=== PATIENT | female | born 1940 | race Caucasian/White ===

== ENCOUNTER → 2023-05-23 13:25 | Outpatient (REF) | payer MEDICARE, OTHER, SELFPAY ==
--- NOTE | 2023-05-23 13:50 | CA_ITS ---
Transthoracic Echocardiogram Patient (Last, First, Middle): Dolly Sloan M Gender: Female Date of : 1940 Age: 82 Procedure Date: 05/23/2023 Procedure Type: Transthoracic Echocardiogram Location: OP Height: 157.48 cm Weight: 97.52 kg BSA: 1.97 m2 Heart Rate: 74 bpm BP: 135 / 70 mmHg Domestic Housekeeper: TREVIN Referring MD: Yasemin Ruiz MD Symptoms: [id number] Study Quality: Fair ECG Rhythm: Atrial Fibrillation Conclusions: - Normal left ventricular size and systolic function. There is moderately increased left ventricular wall thickness. The visually estimated ejection fraction is between 60-65%. - Normal right ventricular cavity size. There is low normal right ventricular systolic function. - The left atrium is severely dilated. The right atrium is normal in size. - There is mild aortic valve stenosis. - There is mild dilatation of the ascending aorta measuring 3.70 cm. Findings Left Ventricle Normal left ventricular size and systolic function. There is moderately increased left ventricular wall thickness. The visually estimated ejection fraction is between 60-65%. There is no evidence of regional wall motion abnormalities. Diastolic function is indeterminate on the basis of available data. Right Ventricle Normal right ventricular cavity size. There is low normal right ventricular systolic function. Atria The left atrium is severely dilated. The right atrium is normal in size. Aortic Valve There is moderate calcification of the aortic valve. There is mild aortic valve stenosis. The peak aortic velocity is 1.61 m/s. The mean gradient is 6 mmHg. There is no aortic valve regurgitation. Mitral Valve The mitral valve appears normal. There is severe mitral annular calcification. There is trace mitral valve regurgitation. There is no mitral valve stenosis. Pulmonic Valve The pulmonic valve is likely normal. There is trace pulmonic valve regurgitation. Tricuspid Valve Normal tricuspid valve structure. Normal right atrial pressure. There is no evidence of pulmonary hypertension. Great Vessels There is mild dilatation of the ascending aorta measuring 3.70 cm. The visualized portions of the pulmonary artery and branches are normal. Venous The inferior vena cava is normal in size and collapses greater than 50% with inspiration. Pericardium/Pleural There is no evidence of pericardial effusion. Prior Study Comparison No prior study available for comparison. Measurements 2D Linear Measurements IVSd: 1.40 0.6-0.9/0.6-1.0 cm LVIDd: 4.50 3.9-5.3/4.2-5.9 cm LVIDd Index: 2.28 2.4-3.2/2.2-3.1 cm/m2 LVIDs: 2.50 2.0-3.6 cm LVPWd: 1.20 0.7-1.1 cm LA Diam: 5.40 2.7-3.8/3.0-4.0 cm LAIDs Index: 2.74 1.5-2.3 cm/m2 LV Mass: 277.46 67-162/88-224 g LV Mass Index: 140.84 43-95/49-115 g/m2 LVOT Diam: 2.00 3.0+(-)1.3 cm 2D Systolic Function EF 4C: 66.20 >55% EF 2C: 49.90 >55% EF BiP: 57.30 >55% Mitral Valve MV VTI: 0.39 MV Pk Dante: 1.67 MV Mn Dante: 0.90 MV Pk Grad: 11.00 MV Mn Grad: 4.00 MV Pk E: 1.57 MV Decel Time: 260.00 E'Lateral: 7.54 E'Medial: 4.87 E/E' Med: 32.20 E/E' Lat: 20.80 PHT: 76.00 MVA PHT: 2.89 MVA Continuity: 1.57 Decel Hitchcock: 6.08 Aortic Valve AoV Pk Dante: 1.61 AoV Mn Dante: 1.19 AoV VTI: 0.37 AoV Pk Grad: 10.00 Aov Mn Grad: 6.00 BERLIN Cont.VTI: 1.66 LVOT LVOT Pk Dante: 0.89 LVOT Mn Dante: 0.66 LVOT VTI: 0.19 LVOT Pk Grad: 3.00 LVOT Mn Grad: 2.00 LVOT Diam: 2.00 LVOT Area: 3.14 Diastolic Function MV Pk E: 1.57 E'Medial: 4.87 E/E' Med: 32.20 E' Laterial: 7.54 E/E' Lat: 20.80 Right Ventricle TAPSE (mm): 17.10 TVS' Dante: 9.65 Tricuspid Valve TR Pk Dante: 2.13 TR Pk Grad: 18.00 RA Press: 8.00 RVSP: 26.00 Great Vessels Aorta Sinus of Valsalva: 3.20 2.0-3.5 cm Ao Asc: 3.70 2.1-3.4 cm Pulmonary Valve PV Pk Dante: 0.94 Peak PV Grad: 4.00 Updated in Other Vendor System with Status of Final Gianni Marino MD electronically signed on 05/25/2023 3:22:59 PM with status of Final
== END ==
LOC: HO.CARD 13:25
PROVIDERS: PCP Family Medicine; Visit Provider Family Medicine
DX: R06.09 Other forms of dyspnea (principal)
CPT/HCPCS: 93306

== ENCOUNTER → 2023-05-23 13:50 | Outpatient (BNV) | payer MEDICARE, OTHER, SELFPAY | PROVIDERS: PCP Family Medicine; Visit Provider Internal Medicine Cardiovascular Disease | DX: I35.0 Nonrheumatic aortic (valve) stenosis (principal) | CPT/HCPCS: 93306 ==